=== PATIENT | female | born 1995 | race Native Hawaiian/Other Pacific Islander ===

== ENCOUNTER 2020-07-16 11:21 | Emergency (ER) | payer SELFPAY ==
[2020-07-16 12:58] LABS: Bacteria,Urine 1+ /HPF (Negative); Bilirubin,Urine NEG (Negative); Blood,Urine SM (Negative); Color,Urine Straw (Yellow); Protein,Urine <15 mg/dL mg/dL (Negative); Urobilinogen,Urine < 2.0 mg/dL (<2.0)
[2020-07-16 13:16] LABS: Basophils % (Auto) 0.2 % (0.0-1.8); Hematocrit 32.5 % (30.3-42.9); Hemoglobin 11.2 gm/dl (10.1-14.3); Lymphocytes # (Auto) 1.2 K/mm3 (1.2-5.4); Lymphocytes % (Auto) 10.8 % (13.4-35.0); Mean Corpuscular HGB Conc 35 % (30-34); Mean Corpuscular Volume 84 fl (79-97); Monocytes # (Auto) 0.5 K/mm3 (0.0-0.8); Platelet Count 214 K/mm3 (140-440); Red Blood Count 3.87 M/mm3 (3.65-5.03); Red Cell Distribution Width 14.6 % (13.2-15.2)
[2020-07-16 13:36] LABS: Alanine Aminotransferase 23 units/L (7-56); Albumin 3.6 g/dL (3.9-5); Blood Urea Nitrogen 4 mg/dL (7-17); Calcium 9.1 mg/dL (8.4-10.2); Hemolysis Index 16
[2020-07-16 13:37] LABS: BUN/Creatinine Ratio 10
[2020-07-16] MEDS ORDERED: AZITHROMYCIN 250 MG TAB PO ONE (13:41)
[2020-07-16] MEDS ORDERED: SODIUM CHLORIDE 0.9% 1000 ML 1,000 ML IV ONE (13:41)
[2020-07-16] MEDS ORDERED: cefTRIAXone/NS 1 GM/50 ML 1 GM/50 ML BAG IV ONE (13:42)
--- NOTE | 2020-07-16 14:31 | Emergency Department Report ---
ED Abdominal Pain HPI - General Chief Complaint: Abdominal Pain Stated Complaint: POSS 4 WKS /ABD PAIN Time Seen by Provider: 07/16/20 12:20 Source: patient, district manager primary care sales Mode of arrival: Ambulatory Limitations: Language Barrier - History of Present Illness Initial Comments: blue, patient statement services representative used as Kinyarwanda interpretation for history, ROS, PE, results, and disposition/follow up Patient is a 24-year-old female presents emergency room with complaints of lower abdominal pain that began a few days ago. She states that she also has yellow vaginal discharge. She states that her last menstrual cycle was 05/26/2020. She states that she took a urine test a week ago and that it was positive. She states that she is also been experiencing some dysuria, urinary frequency, lower back discomfort. She denies any vaginal bleeding, fever, vomiting, diarrhea. No past medical history. No allergies to medications. She has not seen anyone for this and has not had a confirmed. /P:2/A:0 - Related Data Previous Rx's Medication Instructions Recorded Last Taken Type Acetaminophen [Tylenol] 650 mg PO Q8HR PRN #14 capsule 07/16/20 Unknown Rx Metoclopramide [Reglan] 10 mg PO Q8HR PRN #10 tab 07/16/20 Unknown Rx cephALEXin [Keflex] 500 mg PO BID #14 cap 07/16/20 Unknown Rx Allergies Allergy/AdvReac Type Severity Reaction Status Date / Time No Known Allergies Allergy Unverified 07/16/20 11:23 ED Review of Systems ROS: Stated complaint: POSS 4 WKS /ABD PAIN Other details as noted in HPI Comment: All other systems reviewed and negative ED Past Medical Hx - Past Medical History Previous Medical History?: No - Surgical History Past Surgical History?: No - Social History Smoking Status: Never Smoker - Medications Home Medications: Home Medications Medication Instructions Recorded Confirmed Last Taken Type Acetaminophen [Tylenol] 650 mg PO Q8HR PRN #14 capsule 07/16/20 Unknown Rx Metoclopramide [Reglan] 10 mg PO Q8HR PRN #10 tab 07/16/20 Unknown Rx cephALEXin [Keflex] 500 mg PO BID #14 cap 07/16/20 Unknown Rx ED Physical Exam - General Limitations: No Limitations General appearance: alert, in no apparent distress - Head Head exam: Present: atraumatic, normocephalic - Eye Eye exam: Present: normal appearance - ENT ENT exam: Present: mucous membranes moist - Respiratory Respiratory exam: Present: normal lung sounds bilaterally. Absent: respiratory distress, wheezes, rales, rhonchi, stridor, chest wall tenderness, accessory muscle use, decreased breath sounds, prolonged expiratory - Cardiovascular Cardiovascular Exam: Present: normal rhythm, tachycardia, normal heart sounds. Absent: systolic murmur, diastolic murmur, rubs, gallop - GI/Abdominal GI/Abdominal exam: Present: soft, normal bowel sounds. Absent: distended, tenderness, guarding, rebound, rigid - External exam: Present: erythema. Absent: swelling, lesions, lacerations, ecchymosis, bleeding Speculum exam: Present: erythema, vaginal discharge (yellow/green), cervical discharge (yellow/green), other (medical education manager: YOGI josé). Absent: vaginal bleeding, foreign body, tissue, laceration Bi-manual exam: Present: normal bi-manual exam. Absent: cervical motion tendernes, adnexal tenderness, adnexal mass - Neurological Exam Neurological exam: Present: alert, oriented X3 - Psychiatric Psychiatric exam: Present: normal affect, normal mood - Skin Skin exam: Present: warm, dry, intact ED Course Vital Signs 07/16/20 07/16/20 11:24 16:05 Temperature 98.8 F Pulse Rate 125 H 86 Respiratory 18 16 Rate Blood Pressure 138/84 Blood Pressure 107/55 [Left] O2 Sat by Pulse 97 100 Oximetry ED Medical Decision Making - Lab Data Result diagrams: 07/16/20 12:54 07/16/20 12:54 Lab Results 07/16/20 07/16/20 07/16/20 Range/Units 12:46 12:54 12:54 WBC 10.7 (4.5-11.0) K/mm3 RBC 3.87 (3.65-5.03) M/mm3 Hgb 11.2 (10.1-14.3) gm/dl Hct 32.5 (30.3-42.9) % MCV 84 (79-97) fl MCH 29 (28-32) pg MCHC 35 H (30-34) % RDW 14.6 (13.2-15.2) % Plt Count 214 (140-440) K/mm3 Lymph % (Auto) 10.8 L (13.4-35.0) % [place] % (Auto) 5.0 (0.0-7.3) % Eos % (Auto) 0.0 (0.0-4.3) % Baso % (Auto) 0.2 (0.0-1.8) % Lymph # (Auto) 1.2 (1.2-5.4) K/mm3 [place] # (Auto) 0.5 (0.0-0.8) K/mm3 Eos # (Auto) 0.0 (0.0-0.4) K/mm3 Baso # (Auto) 0.0 (0.0-0.1) K/mm3 Seg Neutrophils % 84.0 H (40.0-70.0) % Seg Neutrophils # 9.0 H (1.8-7.7) K/mm3 Sodium 132 L (137-145) mmol/L Potassium 3.5 L (3.6-5.0) mmol/L Chloride 98.1 (98-107) mmol/L Carbon Dioxide 17 L (22-30) mmol/L Anion Gap 20 mmol/L BUN 4 L (7-17) mg/dL Creatinine 0.4 L (0.6-1.2) mg/dL Estimated GFR > 60 ml/min BUN/Creatinine Ratio 10 % Glucose 83 (65-100) mg/dL Calcium 9.1 (8.4-10.2) mg/dL Total Bilirubin 0.40 (0.1-1.2) mg/dL AST 17 (5-40) units/L ALT 23 (7-56) units/L Alkaline Phosphatase 82 (35-129) units/L Total Protein 7.0 (6.3-8.2) g/dL Albumin 3.6 L (3.9-5) g/dL Albumin/Globulin Ratio 1.1 % HCG, Quant (0-4) mIU/mL Urine Color Straw (Yellow) Urine Turbidity Hazy (Clear) Urine pH 6.0 (5.0-7.0) Ur Specific [place] 1.001 L (1.003-1.030) Urine Protein <15 mg/dl (Negative) mg/dL Urine Glucose (UA) Neg (Negative) mg/dL Urine Ketones 20 (Negative) mg/dL Urine Blood Sm (Negative) Urine Nitrite Neg (Negative) Urine Bilirubin Neg (Negative) Urine Urobilinogen < 2.0 (<2.0) mg/dL Ur Leukocyte Esterase Lg (Negative) Urine WBC (Auto) 39.0 H (0.0-6.0) /HPF Urine RBC (Auto) 3.0 (0.0-6.0) /HPF U Epithel Cells (Auto) < 1.0 (0-13.0) /HPF Urine Bacteria (Auto) 1+ (Negative) /HPF Blood Type 07/16/20 07/16/20 Range/Units 12:54 12:54 WBC (4.5-11.0) K/mm3 RBC (3.65-5.03) M/mm3 Hgb (10.1-14.3) gm/dl Hct (30.3-42.9) % MCV (79-97) fl MCH (28-32) pg MCHC (30-34) % RDW (13.2-15.2) % Plt Count (140-440) K/mm3 Lymph % (Auto) (13.4-35.0) % [place] % (Auto) (0.0-7.3) % Eos % (Auto) (0.0-4.3) % Baso % (Auto) (0.0-1.8) % Lymph # (Auto) (1.2-5.4) K/mm3 [place] # (Auto) (0.0-0.8) K/mm3 Eos # (Auto) (0.0-0.4) K/mm3 Baso # (Auto) (0.0-0.1) K/mm3 Seg Neutrophils % (40.0-70.0) % Seg Neutrophils # (1.8-7.7) K/mm3 Sodium (137-145) mmol/L Potassium (3.6-5.0) mmol/L Chloride (98-107) mmol/L Carbon Dioxide (22-30) mmol/L Anion Gap mmol/L BUN (7-17) mg/dL Creatinine (0.6-1.2) mg/dL Estimated GFR ml/min BUN/Creatinine Ratio % Glucose (65-100) mg/dL Calcium (8.4-10.2) mg/dL Total Bilirubin (0.1-1.2) mg/dL AST (5-40) units/L ALT (7-56) units/L Alkaline Phosphatase (35-129) units/L Total Protein (6.3-8.2) g/dL Albumin (3.9-5) g/dL Albumin/Globulin Ratio % HCG, Quant 94953 H (0-4) mIU/mL Urine Color (Yellow) Urine Turbidity (Clear) Urine pH (5.0-7.0) Ur Specific [place] (1.003-1.030) Urine Protein (Negative) mg/dL Urine Glucose (UA) (Negative) mg/dL Urine Ketones (Negative) mg/dL Urine Blood (Negative) Urine Nitrite (Negative) Urine Bilirubin (Negative) Urine Urobilinogen (<2.0) mg/dL Ur Leukocyte Esterase (Negative) Urine WBC (Auto) (0.0-6.0) /HPF Urine RBC (Auto) (0.0-6.0) /HPF U Epithel Cells (Auto) (0-13.0) /HPF Urine Bacteria (Auto) (Negative) /HPF Blood Type O POSITIVE Vital Signs 07/16/20 07/16/20 11:24 16:05 Temperature 98.8 F Pulse Rate 125 H 86 Respiratory 18 16 Rate Blood Pressure 138/84 Blood Pressure 107/55 [Left] O2 Sat by Pulse 97 100 Oximetry - Radiology Data Radiology results: report reviewed ULTRASOUND OBSTETRIC INDICATION / CLINICAL INFORMATION: , lower abd pain. Clinical Gestational Age (GA): 7.2 weeks.days TECHNIQUE: Transabdominal. COMPARISON: None available. FINDINGS: There is a single intrauterine . Biparietal Diameter = 3.2 cm = 16.0 weeks.days Head Circumference = 11.7 cm = 15.5 weeks.days Abdominal Circumference = 9.1 cm = 15.2 weeks.days Femur Length = 1.9 cm = 15.4 weeks.days Average Ultrasound Age (AUA) = 15.5 weeks.days Heart Rate: 151 beats per minute. Estimated Weight in grams (if calculated): Not calculated. Estimated Weight Growth Percentile (if calculated): Not calculated. Position: cephalic. Cervix: closed. Length in cm (if measured): 3.2 Placenta: posterior and free of the os. Amniotic Fluid Volume: normal Amniotic Fluid Index (CHRIS) in cm (if calculated): Not calculated. Maternal Adnexa: No significant abnormality. IMPRESSION: 1. Single, living intrauterine with estimated sonographic age of 15.5 weeks.days 2. No acute sonographic abnormality. Signer Name: Wen Alonso MD Signed: 07/16/2020 3:08 PM Workstation Name: [id number] Transcribed By: DT Dictated By: Salvador Alonso MD Electronically Authenticated By: Salvador Alonso MD Signed Date/Time: 07/16/20 150 DD/ 04 TD/TT: - Medical Decision Making blue, patient statement services representative used as Kinyarwanda interpretation for history, ROS, P E, results, and disposition/follow up Patient is a 24-year-old female presents emergency room with complaints of lower abdominal pain that began a few days ago. She states that she also has yellow vaginal discharge. She states that her last menstrual cycle was 05/26/2020. She states that she took a urine test a week ago and that it was positive. She states that she is also been experiencing some dysuria, urinary frequency, lower back discomfort. She denies any vaginal bleeding, fever, vomiting, diarrhea. No past medical history. No allergies to medications. She has not seen anyone for this and has not had a confirmed. /P:2/A:0. Initial vitals with tachycardia which improved to normal upon repeat. No abdominal tenderness on exam, medical education manager YOGI José, there is a moderate amount of yellow vaginal/cervical discharge, there is some vulvar erythema, no signs of lesions or blisters, no CMT, no adnexal tenderness or masses. OB US: 1. Single, living intrauterine with estimated sonographic age of 15.5 weeks.days 2. No [place] [address]. labs shows signs of mild dehydration, pt given 1L IVF. pt is Rh positive. UA shows evidence of UTI with WBCs and leukocyte esterase. wet prep is negative. G/C swab sent, offered patient prophylactic treatment, she states that she would like treatment, patient given ceftriaxone and azithromycin. Discussed all results with patient and answered questions. Patient given prescription for Keflex, Reglan, Tylenol. Advised patient Please take medication as prescribed. Increase your water intake. Please take a vitamin [id number]. Follow-up with a health department or HIGHER LEVEL TEACHING ASSISTANT for full STD panel. Please follow-up with HIGHER LEVEL TEACHING ASSISTANT to receive your care. Please have your partner tested and treated as well. Avoid sexual intercourse. Return to the emergency room for any new or worsening symptoms. - Differential Diagnosis UTI, STD, vaginitis, BV, yeast, ectopic, IUP, threatened miscarriage, cyst Critical care attestation.: If time is entered above; I have spent that time in minutes in the direct care of this critically ill patient, excluding procedure time. ED Disposition Clinical Impression: Lower abdominal pain, Vaginal discharge, Dehydration UTI (urinary tract infection) Qualifiers: Urinary tract infection type: acute cystitis Hematuria presence: without hematuria Qualified Code(s): N30.00 - Acute cystitis without hematuria Qualifiers: Weeks of gestation: 15 weeks Qualified Code(s): Z3A.15 - 15 weeks gestation of Disposition: DC-01 TO HOME OR SELFCARE Is pt being admited?: No Does the pt Need Aspirin: No Condition: Stable Instructions: (ED), Sexually Transmitted Diseases (ED), Safe Sex (ED), Urinary Tract Infection in Women (ED) Additional Instructions: Please take medication as prescribed. Increase your water intake. Please take a vitamin [id number]. Follow-up with a health department or HIGHER LEVEL TEACHING ASSISTANT for full STD panel. Please follow-up with HIGHER LEVEL TEACHING ASSISTANT to receive your care. Please have your partner tested and treated as well. Avoid sexual intercourse. Return to the emergency room for any new or worsening symptoms. [place] los medicamentos segn lo prescrito. Incrementa tu ingesta de agua. [place] ewelina vitamina de venta shayy. Get un seguimiento con un departamento de pat u obstetra / gineclogo para obtener un panel completo de ETS. Get un seguimiento con un obstetra / gineclogo para recibir oakes atencin . Get que oakes barbara tambin sea examinada y tratada. Evite las relaciones sexuales. Regrese a la ana laura de emergencias por cualquier sntoma nuevo o que empeore. Prescriptions: cephALEXin [Keflex] 500 mg PO BID #14 cap Metoclopramide [Reglan] 10 mg PO Q8HR PRN #10 tab PRN Reason: Nausea Acetaminophen [Tylenol] 650 mg PO Q8HR PRN #14 capsule PRN Reason: pain Referrals: PRIMARY CARE, [Primary Care Provider] - 2-3 Days [facility] [Provider Group] - 2-3 Days [facility] [Outside] - 2-3 Days PEYTON FINNEY MD [Staff Physician] - 2-3 Days [facility] [Provider Group] - 2-3 Days Time of Disposition: 15:24 Print Language: MEXICAN
--- NOTE | 2020-07-16 15:12 | Ultrasound Report ---
ULTRASOUND OBSTETRIC INDICATION / CLINICAL INFORMATION: , lower abd pain. Clinical Gestational Age (GA): 7.2 weeks.days TECHNIQUE: Transabdominal. COMPARISON: None available. FINDINGS: There is a single intrauterine . Biparietal Diameter = 3.2 cm = 16.0 weeks.days Head Circumference = 11.7 cm = 15.5 weeks.days Abdominal Circumference = 9.1 cm = 15.2 weeks.days Femur Length = 1.9 cm = 15.4 weeks.days Average Ultrasound Age (AUA) = 15.5 weeks.days Heart Rate: 151 beats per minute. Estimated Weight in grams (if calculated): Not calculated. Estimated Weight Growth Percentile (if calculated): Not calculated. Position: cephalic. Cervix: closed. Length in cm (if measured): 3.2 Placenta: posterior and free of the os. Amniotic Fluid Volume: normal Amniotic Fluid Index (CHRIS) in cm (if calculated): Not calculated. Maternal Adnexa: No significant abnormality. IMPRESSION: 1. Single, living intrauterine with estimated sonographic age of 15.5 weeks.days 2. No acute sonographic abnormality. Signer Name: Wen Alonso MD Signed: 07/16/2020 3:08 PM Workstation Name: [id number]
[2020-07-16] MEDS ORDERED: METOCLOPRAMIDE 10 MG/2 ML INJ IV ONE (15:41)
[2020-07-16 16:05] VITALS: BP 107/55
== END 2020-07-16 16:05 | disposition home or self-care (01) ==
LOC: ED 11:21
DX: O23.41 Unspecified infection of urinary tract in pregnancy, first trimester (principal); O99.282 Endocrine, nutritional and metabolic diseases complicating pregnancy, second trimester; E86.0 Dehydration; Z3A.15 15 weeks gestation of pregnancy
CPT/HCPCS: 36415; 76805; 80053; 81001; 84702; 85025; 86900; 86901; 87076; 87086; 87186; 87210; 87591; 96365; 96366; 96375; 99284; J0696; J2765; J7030